=== PATIENT | female | born 2005 | race Hispanic/Latino ===

== ENCOUNTER 2024-09-26 12:15 | Emergency (ER) | payer OTHER, SELFPAY ==
[2024-09-26 12:22] VITALS: BP 108/61; PULSE 64; RESP 99; TEMP 36.7; BMI 18.1
--- NOTE | 2024-09-26 13:54 | ED_ITS ---
HPI - Abdominal Pain General Chief Complaint: Abdominal Pain Stated Complaint: WIC; Stomach pain Time Seen by Provider: 09/26/24 13:10 Source: patient Mode of arrival: Ambulatory History of Present Illness HPI narrative: 19-year-old female with no reported past medical history presents from the walk- in clinic for periumbilical abdominal pain. Reports associated nausea but no vomiting. States that she feels like she may have diarrhea but has not had any bowel abnormalities yet. Currently on menstrual cycle. Related Data Previous Rx's Medication Instructions Recorded ondansetron 4 mg disintegrating 4 mg PO Q8H PRN nausea and 09/26/24 tablet vomiting #30 tabs Allergies Allergy/AdvReac Type Severity Reaction Status Date / Time No Known Drug Allergies Allergy Verified 09/26/24 12:22 Patient History Social History Smoking Status: Never smoker Smoking Status: Never smoker Exam Initial Vital Signs Initial Vital Signs: Vital Signs Temperature 98.0 F 09/26/24 12:22 Pulse Rate 64 09/26/24 12:22 Respiratory Rate 99 H 09/26/24 12:22 Blood Pressure 108/61 09/26/24 12:22 Oxygen Delivery Method Room Air 09/26/24 12:22 Const: Awake, alert, no acute distress, nontoxic appearing Cardiac: regular rate, regular rhythm RESP: unlabored, conversational without dyspnea GI: Soft, nontender, nondistended Skin: Warm, Dry, intact, no rashes Neuro: AO x3, CN II-XII grossly intact, moves all extremities Course Orders Ordered: ED Orders 09/26/24 13:15 Urine Microscopic Stat Discontinued Medications Al Hydrox/Mg Hydrox/Simethicone (Mag Hydrox/Alum/Simeth 30 Ml Udc) 30 ml PO NOW ONE Stop: 09/26/24 13:55 Last Admin: 09/26/24 14:26 Dose: 30 ml Documented By: JANELLE Dicyclomine HCl (Dicyclomine 10 Mg Capsule) 20 mg PO NOW ONE Stop: 09/26/24 13:55 Last Admin: 09/26/24 14:25 Dose: 20 mg Documented By: JANELLE Lidocaine HCl (Lidocaine Viscous 2% 15 Ml Solution) 15 ml PO NOW ONE Stop: 09/26/24 13:55 Last Admin: 09/26/24 14:26 Dose: 15 ml Documented By: JANELLE Ondansetron HCl (Ondansetron 4 Mg Odt) 4 mg SL NOW ONE Stop: 09/26/24 13:55 Last Admin: 09/26/24 14:25 Dose: 4 mg Documented By: JANELLE Vital Signs Vital signs: Vital Signs - 8 hr 09/26/24 12:22 Temperature 98.0 F Pulse Rate 64 Respiratory Rate 99 H Blood Pressure 108/61 Oxygen Delivery Method Room Air MDM - Abdominal Pain Lab Data Labs: Lab Results 09/26/24 Range/Units 13:15 Urine RBC 1-5/hpf (0-5/HPF) Urine WBC 0-1/hpf (0-5/HPF) Ur Squamous Epith Cells 0-1 /hpf (0-5/HPF) Urine Bacteria None seen (None) Ur Culture Indicated? Cult not indicated Vol Urine Centrifuged 10ml (spun) Point of care testing: Point of Care Testing Test Results Negative Urine Dip Bedside Urine Glucose Negative Bedside Urine Bilirubin - Negative Bedside Urine Ketone +++ 80 Urine Specific Premont 1.030 Bedside Urine Occult Blood +++ Bedside Urine pH 6.0 Bedside Urine Protein + 30 Bedside Urine Urobilinogen - Negative Bedside Urine Nitrite - Negative Bedside Urine Leukocytes - Negative Esterase MDM Narrative Medical decision making narrative: Well-appearing patient with mild periumbilical abdominal pain. On exam abdomen is soft, there is no significant tenderness to light or deep palpation. No focal findings. Patient given medications for symptom control at home. Probable gastroenteritis at this time. Patient counseled on presumptive diagnosis. Antiemetics sent to pharmacy of choice. Supportive measures counseled for home. Discharge Plan Departure Patient Disposition: Home Clinical Impression: Abdominal pain Instructions: DI for Abdominal Pain-Adult Prescriptions: New ondansetron 4 mg tablet,disintegrating 4 mg PO Q8H PRN (Reason: nausea and vomiting) Qty: 30 0RF Referrals: Miscellaneous,Doctor, MD [Primary Care Provider] - Stand Alone Forms: Patient Portal/API/Survey
[2024-09-26 13:58] LABS: Bacteria Urine None Seen; Culture Indicated Urine Cult Not Indicated; RBC Urine 1-5/HPF (0-5/HPF); Squamous Epithelial Cell Urine 0-1 /HPF (0-5/HPF); Urine Volume 10mL (spun); WBC Urine 0-1/HPF (0-5/HPF)
[2024-09-26] MEDS: ONDANSETRON 4 MG ODT SL (14:25)
[2024-09-26] MEDS: DICYCLOMINE 10 MG CAPSULE 20 MG PO (14:25)
[2024-09-26] MEDS: MAG HYDROX/ALUM/SIMETH 30 ML UDC PO (14:26)
[2024-09-26] MEDS: LIDOCAINE VISCOUS 2% 15 ML SOLUTION PO (14:26)
== END 2024-09-26 15:07 | disposition home or self-care (01) ==
PROVIDERS: Emergency Provider Emergency Medicine
DX: R10.33 Periumbilical pain (principal); R11.0 Nausea
CPT/HCPCS: 81003; 81015; 81025; 99283